=== PATIENT | male | born 1935 | race Caucasian/White ===

== ENCOUNTER 2018-03-21 14:23 | Emergency (ER) | payer MEDICARE, OTHER ==
[2018-03-21 17:07] VITALS: BP 178/91
--- NOTE | 2018-03-22 06:34 | EDM.PDOC ---
ED HPI GENERAL MEDICAL PROBLEM - General Chief Complaint: Upper Extremity Injury/Pain Stated Complaint: RIGHT ARM PAIN/WEAKNESS Time Seen by Provider: 03/21/18 14:30 Source of Information: Reports: Patient, Family History Limitations: Reports: No Limitations - History of Present Illness INITIAL COMMENTS - FREE TEXT/NARRATIVE: Complains of discomfort to the R anterior shoulder and bicep area. No paresthesia reported. States that he has been active and pulling weeds recently. Denies injury elsewhere. Denies any acute trauma to the area. Location: Reports: Upper Extremity, Right Treatments [employer]: Reports: Acetaminophen Right Upper Arm Pain Score (Numeric/FACES): 5 - Related Data Allergies Allergy/AdvReac Type Severity Reaction Status Date / Time terazosin HCl [From Hytrin] Allergy Cannot Verified 03/21/18 14:47 Remember captopril [From Capoten] AdvReac Cough Verified 03/21/18 14:47 Home Meds: Home Meds Aspirin 325 mg PO DAILY 05/31/13 [History] Betamethasone Dipropionate [Diprosone 0.05% Lotion] 0.5 percent TOP ASDIRECTED PRN 05/31/13 [History] Finasteride 5 mg PO DAILY 05/31/13 [History] Fish Oil/[place]-3 Fatty Acids [Fish Oil] 1 each PO DAILY 05/31/13 [History] Fluorometholone [Fluorometholone 0.1% Ophth Susp] 1 drop EYEBOTH DAILY 05/31/13 [History] Fluticasone/Salmeterol [Advair 250-50 Diskus] 1 puff INH BID 05/31/13 [History] Metoprolol Tartrate [Lopressor] 25 mg PO BID 05/31/13 [History] Multivitamin with Minerals [Multiple Vitamin] 1 tab PO DAILY 05/31/13 [History] Omeprazole 20 mg PO DAILY 05/31/13 [History] Pravastatin [Pravachol] 20 mg PO DAILY 05/31/13 [History] Tacrolimus [Protopic 0.1% Oint] 0.1 percent TOP BID PRN 05/31/13 [History] Tamsulosin HCl 0.4 mg PO DAILY 05/31/13 [History] Testosterone Cypionate [Depo-Testosterone] 200 mg IM ASDIRECTED 05/31/13 [ History] Valsartan [Diovan] 100 mg PO DAILY 05/31/13 [History] buPROPion [Wellbutrin XL] 450 mg PO DAILY 05/31/13 [History] traZODone 300 mg PO BEDTIME 05/31/13 [History] Acetaminophen 650 mg PO Q6HR PRN 08/27/16 [History] Nitroglycerin [Nitrostat] 0.4 mg SL ASDIRECTED PRN 08/27/16 [History] Venlafaxine HCl [Venlafaxine ER] 75 mg PO DAILY 08/27/16 [History] Furosemide [Lasix] 20 mg PO DAILY 08/06/17 [History] Albuterol [Ventolin HFA] 1 puff INH Q4H PRN 08/12/17 [History] Social & Family History - Tobacco Use Smoking Status *Q: Never Smoker - Recreational Drug Use Recreational Drug Use: No Review of Systems - Review of Systems Review Of Systems: See Below Constitutional: Reports: No Symptoms Musculoskeletal: Reports: Shoulder Pain, Arm Pain Neurological: Reports: No Symptoms ED EXAM, GENERAL - Physical Exam Exam: See Below Exam Limited By: No Limitations General Appearance: Alert, WD/WN, No Apparent Distress Extremities: Normal Capillary Refill, Arm Pain, Limited Range of Motion Course - Vital Signs Last Recorded V/S: Last Vital Signs Temp 36.6 C 03/21/18 14:25 Pulse 69 03/21/18 14:25 Resp 20 03/21/18 14:25 BP 178/91 H 03/21/18 14:25 Pulse Ox 97 03/21/18 14:25 Departure - Departure Time of Disposition: 15:02 Disposition: Home, Self-Care 01 Condition: Good Clinical Impression: Biceps tendinitis of right upper extremity - Discharge Information Instructions: RICE for Routine Care of Injuries, [id number], Biceps Tendon Tendinitis (Proximal) and Tenosynovitis Rehab-SportsMed Referrals: Camelia Lynch, [Primary Care Provider] - Forms: ED Department Discharge Additional Instructions: Do the exercises in the discharge paperwork. Tylenol #3 1 every 4-6 hours as needed for pain. I would try heat on the painful areas for discomfort. If you are still having discomfort in 5-7 days, follow-up in the clinic for MRI and further evaluation. - Assessment/Plan Plan: Do the exercises in the discharge paperwork. Tylenol #3 1 every 4-6 hours as needed for pain. I would try heat on the painful areas for discomfort. If you are still having discomfort in 5-7 days, follow-up in the clinic for MRI and further evaluation.
== END 2018-03-21 15:00 | disposition home or self-care (01) ==
LOC: VM.ED 14:23
DX: M75.21 Bicipital tendinitis, right shoulder (principal); Z79.82 Long term (current) use of aspirin; Z88.8 Allergy status to other drugs, medicaments and biological substances; Z79.899 Other long term (current) drug therapy
CPT/HCPCS: 99283

== ENCOUNTER 2019-11-01 20:50 | Inpatient (IN) | payer MEDICARE, OTHER ==
[~2019-11-01 20:50] MED LIST: Sodium Chloride 0.9% 1,000 ML IV ONE
[2019-11-01] MEDS ORDERED: Ondansetron 4 MG/2 ML SDV IV ONE (21:02)
--- NOTE | 2019-11-01 21:09 | EDM.PDOC ---
ED HPI GENERAL MEDICAL PROBLEM - General Stated Complaint: dizzy Time Seen by Provider: 11/01/19 20:55 Source of Information: Reports: Patient History Limitations: Reports: No Limitations - History of Present Illness INITIAL COMMENTS - FREE TEXT/NARRATIVE: Patient comes emergency department today by ambulance from home with complaints of dizziness. This patient has been working outside most of the day on a very hot tru day since about 3 PM. He does not drink much for water today and he is only eaten soda crackers today. Which is normal for him ports. Suddenly about 1730 the patient suddenly developed a rather abrupt onset of being unsteady and the room is spinning. Every time that he moves the room starts to spin and he is unable to stand up. He did not fall hit his head. He has no head neck or back pain. There was no loss of consciousness. He denies any diplopia. He denies any paresthesias of his upper or lower extremities or change in the functionality of his upper or lower extremities. He denies any chest pain shortness of breath or difficulty breathing. No palpitations. No fever no chills. No recent abdominal pain nausea vomiting or diarrhea. Every time that he starts to move he feels the spinning dizziness sensation. frontal headache Pain Score (Numeric/FACES): 8 - Related Data Allergies Allergy/AdvReac Type Severity Reaction Status Date / Time terazosin HCl [From Hytrin] Allergy Cannot Verified 11/01/19 21:18 Remember captopril [From Capoten] AdvReac Cough Verified 11/01/19 21:18 Home Meds: Home Meds Aspirin 325 mg PO DAILY 05/31/13 [History] Betamethasone Dipropionate [Diprosone 0.05% Lotion] 0.5 percent TOP ASDIRECTED PRN 05/31/13 [History] Finasteride 5 mg PO DAILY 05/31/13 [History] Fluorometholone [Fluorometholone 0.1% Ophth Susp] 1 drop EYEBOTH DAILY 05/31/13 [History] Fluticasone/Salmeterol [Advair 250-50 Diskus] 1 puff INH BID 05/31/13 [History] Metoprolol Tartrate [Lopressor] 25 mg PO BID 05/31/13 [History] Multivitamin with Minerals [Multiple Vitamin] 1 tab PO DAILY 05/31/13 [History] Omeprazole 20 mg PO DAILY 05/31/13 [History] Pravastatin [Pravachol] 20 mg PO DAILY 05/31/13 [History] Tacrolimus [Protopic 0.1% Oint] 0.1 percent TOP BID PRN 05/31/13 [History] Tamsulosin HCl 0.8 mg PO DAILY 05/31/13 [History] Testosterone Cypionate [Depo-Testosterone] 300 mg IM ASDIRECTED 05/31/13 [ History] buPROPion [Wellbutrin XL] 300 mg PO DAILY 05/31/13 [History] traZODone 300 mg PO BEDTIME 05/31/13 [History] Acetaminophen 650 mg PO Q6HR PRN 08/27/16 [History] Nitroglycerin [Nitrostat] 0.4 mg SL ASDIRECTED PRN 08/27/16 [History] Venlafaxine HCl [Venlafaxine ER] 150 mg PO DAILY 08/27/16 [History] Albuterol [Ventolin HFA] 1 puff INH Q4H PRN 08/12/17 [History] Calcium Carb, Citrate/Vit D3 [Calcium + D3 ER Tablet] 1 tab PO DAILY 11/01/19 [ History] Fluocinonide [Lidex 0.05% Top Soln] 1 applic TOP DAILY PRN 11/01/19 [History] Losartan [Cozaar] 100 mg PO BEDTIME 11/01/19 [History] ED ROS GENERAL - Review of Systems Review Of Systems: Comprehensive ROS is negative, except as noted in HPI. ED EXAM, DIZZINESS - Physical Exam Exam: See Below Text/Narrative:: eyes are closed and when sat up to listen to lung sounds he started to complain of worsening dizziness and started swaying on the cot and improved when he layed down and closed his eyes. Exam Limited By: No Limitations General Appearance: Alert, WD/WN, No Apparent Distress Eye Exam: Bilateral Eye: EOMI, PERRL Ears: Normal External Exam, Normal Canal (other than a small amount of thick dark cerumen. ), Normal TMs Nose: Normal Inspection, Normal Mucosa Throat/Mouth: Normal Inspection, Normal Lips, Normal Oropharynx Head Exam: Atraumatic, Normocephalic Vertigo: reproducible, short duration Neck: Normal Inspection, Supple Respiratory/Chest: No Respiratory Distress, Lungs Clear, No Accessory Muscle Use , Chest Non-Tender Cardiovascular: Normal Peripheral Pulses, Regular Rate, Rhythm, No Edema GI/Abdominal: Normal Bowel Sounds, Soft, Non-Tender (Male) Exam: Deferred Rectal (Males) Exam: Deferred Neurological: Alert, Normal Mood/Affect, CN II-XII Intact, Normal Reflexes, No Motor/Sensory Deficits, Oriented x 3 Back Exam: Normal Inspection, Full Range of Motion Extremities: Normal Inspection, Normal Range of Motion, No Pedal Edema, Normal Capillary Refill Psychiatric: Normal Affect, Normal Mood Skin Exam: Intact, No Rash, Cool, Diaphoretic, Pallor EKG INTERPRETATION EKG Date: 11/01/19 Time: 21:35 Rhythm: NSR Rate (Beats/Min): 59 [place]: Normal P-Wave: Present QRS: Normal ST-T: Normal QT: Prolonged Comparison: NA - No Prior EKG Course - Vital Signs Last Recorded V/S: Last Vital Signs Temp 36.0 C L 11/01/19 20:50 Pulse 65 11/01/19 20:50 Resp 16 11/01/19 21:40 BP 174/83 H 11/01/19 21:40 Pulse Ox 100 11/01/19 21:40 - Orders/Labs/Meds Orders: Active Orders 24 hr Category Date Time Status Admission Status [Patient Status] [ADT] Routine ADT 11/01/19 23:59 Active EKG Documentation Completion [RC] STAT Care 11/01/19 21:00 Active Ang Head [CT] Stat Exams 11/01/19 22:08 Taken CTA Neck W & W/O Contrast [Ang Neck] [CT] Stat Exams 11/01/19 22:08 Ordered Head wo Cont [CT] Stat Exams 11/01/19 21:00 Taken UA RFX NICOLE AND CULT IF INDIC [URIN] Stat Lab 11/01/19 21:00 Ordered Labs: Laboratory Tests 11/01/19 11/01/19 11/01/19 Range/Units 21:30 21:30 21:30 WBC 6.5 (4.0-10.0) x10^3/uL RBC 4.42 L (4.5-6.0) x10^6/uL Hgb 14.1 (14.0-18.0) g/dL Hct 42.0 (40.0-52.0) % MCV 95.0 H (78.0-93.0) fL MCH 31.9 (26.0-32.0) pg MCHC 33.6 (32.0-36.0) g/dL RDW Coeff of Alejandro 12.4 (10.0-15.0) % Plt Count 155 (130-400) x10^3/uL Neut % (Auto) 78.1 (50.0-80.0) % Lymph % (Auto) 12.6 L (25.0-50.0) % [place] % (Auto) 6.3 (2.0-11.0) % Eos % (Auto) 2.5 (0.0-4.0) % Baso % (Auto) 0.5 (0.2-1.2) % Sodium 144 (136-145) mmol/L Potassium 4.3 (3.5-5.1) mmol/L Chloride 107 (98-107) mmol/L Carbon Dioxide 25 (21-32) mmol/L Anion Gap 16.3 (10-20) mmol/L BUN 34 H (7-18) mg/dL Creatinine 1.6 H (0.70-1.30) mg/dL Est Cr Clr Drug Dosing 37.26 mL/min Estimated GFR (MDRD) 41 Glucose 124 H (74-106) mg/dL Lactic Acid 1.7 (0.4-2.0) mmol/L Calcium 8.7 (8.5-10.1) mg/dL Corrected Calcium 9.10 (8.5-10.1) mg/dL Total Bilirubin 0.4 (0.2-1.0) mg/dL AST 23 (15-37) U/L ALT 27 (16-63) U/L Alkaline Phosphatase 72 (46-116) U/L Troponin I < 0.017 (<=0.056) ng/mL Total Protein 6.6 (6.4-8.2) g/dL Albumin 3.5 (3.4-5.0) g/dL Globulin 3.1 Albumin/Globulin Ratio 1.13 Meds: Medications Discontinued Medications Generic Name Dose Route Start Last Admin Trade Name Freq PRN Reason Stop Dose Admin Diazepam 2.5 mg 11/01/19 21:02 11/01/19 21:10 Valium IVPUSH 11/01/19 21:03 2.5 mg STAT ONE Administration Sodium Chloride 1,000 mls @ 999 mls/hr 11/01/19 20:50 11/01/19 20:50 Normal Saline IV 11/01/19 21:50 999 mls/hr ONETIME ONE Administration Iopamidol 100 ml 11/01/19 22:27 11/01/19 23:09 Isovue-300 (61%) IVPUSH 11/01/19 22:28 100 ml ONETIME ONE Administration Meclizine HCl 25 mg 11/02/19 00:00 11/02/19 00:11 Antivert PO 11/02/19 00:01 25 mg ONETIME ONE Administration Ondansetron HCl 4 mg 11/01/19 21:02 11/01/19 21:08 Zofran IV 11/01/19 21:03 4 mg ONETIME ONE Administration - Radiology Interpretation Free Text/Narrative:: CT of the head per radiology no acute intracranial process. Nonspecific white matter changes sequelae of remote small vessel disease. He had neck no arterial occlusion or significant stenosis in the head and neck. Multifocal ectasia and/or fusiform dilation involving the carotid vertebral basilar and bilateral middle cerebral arteries. 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 11/02/19 00:16 He did feel quite a bit better after the valium although still unsteady on his feet. Repeat neuro exam is unchanged from previous. Per radiology CT head normal and CTA head with chronic changes. He is actually able to sit up and move his head without severe dizziness making him lay back down. With the unsteadiness on his feet and his continued symptoms we will admit observation for continued management and have PT see the patient and start him on antivert as well. HE is comfortable with this plan and his questions answered. Departure - Departure Time of Disposition: 00:05 Disposition: Admitted As Inpatient 67 Clinical Impression: Vertigo - Discharge Information Referrals: Camelia Lynch DO [Primary Care Provider] - Sepsis Event Note - Focused Exam Vital Signs: Vital Signs Temp Pulse Resp BP Pulse Ox 11/01/19 21:40 16 174/83 H 100 11/01/19 20:50 36.0 C L 65 12 162/86 H 97 Date Exam was Performed: 11/02/19 Time Exam was Performed: 00:12 - My Orders Last 24 Hours: My Active Orders 11/01/19 21:00 EKG Documentation Completion [RC] STAT Head wo Cont [CT] Stat UA RFX NICOLE AND CULT IF INDIC [URIN] Stat 11/01/19 22:08 Ang Head [CT] Stat CTA Neck W & W/O Contrast [Ang Neck] [CT] Stat 11/01/19 23:59 Admission Status [Patient Status] [ADT] Routine - Assessment/Plan Admission H&P: Please use this note as an admission H&P Last 24 Hours: My Active Orders 11/01/19 21:00 EKG Documentation Completion [RC] STAT Head wo Cont [CT] Stat UA RFX NICOLE AND CULT IF INDIC [URIN] Stat 11/01/19 22:08 Ang Head [CT] Stat CTA Neck W & W/O Contrast [Ang Neck] [CT] Stat 11/01/19 23:59 Admission Status [Patient Status] [ADT] Routine Assessment:: New onset of vertigo Hx of MCA aneurysm. Plan: A/P Vertigo-antivert 25mg q6hrs, LR at 50mls/hr, Zofran 4mg IVP prn nausea vomiting. PT eval for BPPV and home care. Continue with previous home meds. Cardiac monitoring, daily labs.
[2019-11-01 22:00] LABS: ANION GAP 16.3 mmol/L (10-20); CHLORIDE,CL 107 mmol/L (98-107); SODIUM,NA 144 mmol/L (136-145)
[2019-11-01] MEDS ORDERED: Iopamidol 612 MG/ML 100 ML Bottle IVPUSH ONE (22:27)
[2019-11-02] MEDS ORDERED: Meclizine 25 MG Tab PO ONE
[2019-11-02] MEDS ORDERED: Ondansetron 4 MG/2 ML SDV IVPUSH PRN (00:32)
[2019-11-02] MEDS ORDERED: BETAMETHASONE DIPROPIONATE TOP PRN (00:33)
[2019-11-02] MEDS ORDERED: Lactated Ringers 1,000 ML IV SCH (00:45)
[2019-11-02] MEDS: Meclizine 25 MG Tab PO SCH ×4 (05:26→23:47)
[2019-11-02 07:13] LABS: ANION GAP 14.4 mmol/L (10-20)
[2019-11-02] MEDS: Arformoterol 15 MCG/2 ML Neb Soln NEB SCH ×2 (07:15→19:48)
[2019-11-02] MEDS: Budesonide 0.5 MG/2 ML Neb Susp NEB SCH ×2 (07:15→19:48)
--- NOTE | 2019-11-02 08:48 | CT ---
[id number] CT/CT Head WO IV EXAM: CT Head WO IV CLINICAL DATA: VERTIGO COMPARISON STUDY: MR angiography from 2018. FINDINGS: No intracranial hemorrhage, extra-axial fluid collection, or acute ischemia. Mild/moderate parenchymal atrophy diffusely throughout both cerebral hemispheres. Scattered areas of hypodensity in the subcortical and periventricular white matter of the cerebral hemispheres as well. Findings are nonspecific but commonly seen as sequela of chronic small vessel disease. 11 x 7 x 7 mm mass projecting over the sylvian fissure on the left near the medial aspect of the temporal lobe (series 2 image 18 and series 4 image 25). This is partially and peripherally calcified, appearing contiguous with the middle cerebral artery and suspicious for aneurysm. No acute intracranial hemorrhage or extra-axial fluid collection. Mild paranasal sinus mucosal thickening. Mastoid air cells are clear. IMPRESSION: No acute intracranial findings. 11 x 7 x 7 mm partially peripherally calcified mass projecting over the sylvian fissure in the region of the medial left temporal lobe. This correlates with aneurysm seen on MR angiography from 2018. CT angiography of the brain is recommended. Mc Leavitt MD 11/02/19 0148 Thank you for allowing us to participate in the care of your patient.
--- NOTE | 2019-11-02 08:48 | CT ---
[id number] CT/CTA Head Neck EXAM: CT angiogram head and neck INDICATION: VERTIGO. COMPARISON: MR angiography from May 2018. DISCUSSION: Carotid and vertebrobasilar system: Overall, there is ectasia of the carotid and vertebrobasilar systems throughout their length, including origins at the aortic arch. No large vessel occlusion or dissection. [place]: 17 x 8 x 7 mm fusiform aneurysm of the left MCA M2 segment correlate with findings on noncontrast head CT. No change in size or appearance compared to MR from 2018. Dural sinuses, jugular veins and cerebral veins: Limited evaluation of the cerebral veins, dural sinuses and jugular veins is unremarkable. Brain parenchyma: Unremarkable. Neck soft tissues: Unremarkable. Osseous structures: Advanced cervical spondylosis with straightening of the normal cervical lordosis. No acute findings. IMPRESSION: Ectasia of the carotid and vertebrobasilar systems throughout their length, including origins at the aortic arch. 17 x 8 x 7 mm fusiform aneurysm of the left MCA. Mc Leavitt MD 11/02/19 0847 Thank you for allowing us to participate in the care of your patient.
[2019-11-02] MEDS: Acetaminophen 500 MG Tab PO SCH ×2 (09:59→19:47)
[2019-11-02] MEDS: Calcium Citrate/Vitamin D3 315 MG-250 Unit Tab PO SCH (10:00)
[2019-11-02] MEDS: buPROPion 150 MG Tab.ER PO SCH (10:00)
[2019-11-02] MEDS: Metoprolol Tartrate 25 MG Tab PO SCH ×2 (10:01→19:45)
[2019-11-02] MEDS: Multivitamins with Iron/Calcium/Folic Acid/Minerals Tab PO SCH (10:01)
[2019-11-02] MEDS: Tamsulosin 0.4 MG Cap.ER PO SCH (10:01)
[2019-11-02] MEDS: Venlafaxine 75 MG Cap.ER PO SCH (10:01)
[2019-11-02] MEDS: Omeprazole 20 MG Cap.CR PO SCH (10:02)
[2019-11-02] MEDS: Finasteride 5 MG Tab PO SCH (10:02)
[2019-11-02] MEDS: Aspirin 325 MG Tab.EC PO SCH (10:02)
[2019-11-02] MEDS ORDERED: Diazepam 2 MG Tab PO PRN (11:42)
[2019-11-02] MEDS: FLUOROMETHOLONE EYEBOTH SCH (12:29)
--- NOTE | 2019-11-02 19:34 | PCM.PN ---
- General Info Date of Service: 11/02/19 Admission Dx/Problem (Free Text): Vertigo Weakness Unsteady gate Subjective Update: Patient slept well during the night. He has not had any nausea or vomiting. He did have a headache this morning when he woke up which is typical for him he reports that he has had for the past 2 years. He did not relay this to me when I saw him in the emergency department but he has a headache on a daily basis for which he takes a gram of Tylenol in the morning and a gram of Tylenol at bedtime for. This is not the worst headache is ever had. No visual disturbances or paresthesias. He still complains of "dizziness" even when he is sitting and lying still but it is about 60 to 70% improved. He has had no syncope. He has had no chest pain palpitations shortness of breath or cough. Unable to eat this morning without nausea. He still is quite unsteady when he gets up. No abdominal pain. No bowel or bladder complaints. He does relate that it is rather difficult for him to walk with his chronic knee pain. Functional Status: Reports: Pain Controlled, Tolerating Diet - Review of Systems General: Reports: Weakness, Malaise, Appetite. Denies: Fever, Fatigue, Chills HEENT: Reports: Headaches (as stated above resolved after tylenol this am. ) Pulmonary: Reports: No Symptoms Cardiovascular: Reports: No Symptoms Gastrointestinal: Reports: No Symptoms Genitourinary: Reports: No Symptoms Musculoskeletal: Reports: Joint Pain (Chronic bilateral knee pain no worse than normal. ) Skin: Reports: No Symptoms Neurological: Reports: Dizziness, Headache, Difficulty Walking, Gait Disturbance (with his unsteadiness). Denies: Numbness, Paresthesia, Seizure, Syncope, Tingling, Trouble Speaking, Change in Speech Psychiatric: Reports: No Symptoms - Patient Data Vitals - Most Recent: Last Vital Signs Temp 37.2 C 11/02/19 18:00 Pulse 75 11/02/19 18:00 Resp 18 11/02/19 04:54 BP 139/85 11/02/19 18:00 Pulse Ox 94 L 11/02/19 18:00 Weight - Most Recent: 98.339 kg I&O - Last 24 Hours: Intake & Output 11/02/19 11/02/19 11/02/19 06:59 14:59 22:59 Intake Total 1200 660 963 Output Total 400 500 Balance 800 660 463 Lab Results Last 24 Hours: Laboratory Results - last 24 hr 11/01/19 11/01/19 11/01/19 Range/Units 21:30 21:30 21:30 WBC 6.5 (4.0-10.0) x10^3/uL RBC 4.42 L (4.5-6.0) x10^6/uL Hgb 14.1 (14.0-18.0) g/dL Hct 42.0 (40.0-52.0) % MCV 95.0 H (78.0-93.0) fL MCH 31.9 (26.0-32.0) pg MCHC 33.6 (32.0-36.0) g/dL RDW Coeff of Alejandro 12.4 (10.0-15.0) % Plt Count 155 (130-400) x10^3/uL Neut % (Auto) 78.1 (50.0-80.0) % Lymph % (Auto) 12.6 L (25.0-50.0) % [place] % (Auto) 6.3 (2.0-11.0) % Eos % (Auto) 2.5 (0.0-4.0) % Baso % (Auto) 0.5 (0.2-1.2) % Sodium 144 (136-145) mmol/L Potassium 4.3 (3.5-5.1) mmol/L Chloride 107 (98-107) mmol/L Carbon Dioxide 25 (21-32) mmol/L Anion Gap 16.3 (10-20) mmol/L BUN 34 H (7-18) mg/dL Creatinine 1.6 H (0.70-1.30) mg/dL Est Cr Clr Drug Dosing 37.26 mL/min Estimated GFR (MDRD) 41 Glucose 124 H (74-106) mg/dL Lactic Acid 1.7 (0.4-2.0) mmol/L Calcium 8.7 (8.5-10.1) mg/dL Corrected Calcium 9.10 (8.5-10.1) mg/dL Total Bilirubin 0.4 (0.2-1.0) mg/dL AST 23 (15-37) U/L ALT 27 (16-63) U/L Alkaline Phosphatase 72 (46-116) U/L Troponin I < 0.017 (<=0.056) ng/mL Total Protein 6.6 (6.4-8.2) g/dL Albumin 3.5 (3.4-5.0) g/dL Globulin 3.1 Albumin/Globulin Ratio 1.13 Urine Color (YELLOW) Urine Appearance (CLEAR) Urine pH (5.0-8.0) Ur Specific [place] Urine Protein (NEGATIVE) mg/dL Urine Glucose (UA) (NEGATIVE) mg/dL Urine Ketones (NEGATIVE) mg/dL Urine Occult Blood (NEGATIVE) Urine Nitrite (NEGATIVE) Urine Bilirubin (NEGATIVE) Urine Urobilinogen (0.2) EU/dL Ur Leukocyte Esterase (NEGATIVE) 11/02/19 11/02/19 11/02/19 Range/Units 03:00 06:49 06:49 WBC 7.1 (4.0-10.0) x10^3/uL RBC 4.38 L (4.5-6.0) x10^6/uL Hgb 14.0 (14.0-18.0) g/dL Hct 41.7 (40.0-52.0) % MCV 95.2 H (78.0-93.0) fL MCH 32.0 (26.0-32.0) pg MCHC 33.6 (32.0-36.0) g/dL RDW Coeff of Alejandro 12.4 (10.0-15.0) % Plt Count 194 (130-400) x10^3/uL Neut % (Auto) 81.3 H (50.0-80.0) % Lymph % (Auto) 12.9 L (25.0-50.0) % [place] % (Auto) 5.4 (2.0-11.0) % Eos % (Auto) 0.1 (0.0-4.0) % Baso % (Auto) 0.3 (0.2-1.2) % Sodium 143 (136-145) mmol/L Potassium 4.4 (3.5-5.1) mmol/L Chloride 107 (98-107) mmol/L Carbon Dioxide 26 (21-32) mmol/L Anion Gap 14.4 (10-20) mmol/L BUN 28 H (7-18) mg/dL Creatinine 1.4 H (0.70-1.30) mg/dL Est Cr Clr Drug Dosing 42.58 mL/min Estimated GFR (MDRD) 48 Glucose 116 H (74-106) mg/dL Lactic Acid (0.4-2.0) mmol/L Calcium 8.4 L (8.5-10.1) mg/dL Corrected Calcium (8.5-10.1) mg/dL Total Bilirubin (0.2-1.0) mg/dL AST (15-37) U/L ALT (16-63) U/L Alkaline Phosphatase (46-116) U/L Troponin I (<=0.056) ng/mL Total Protein (6.4-8.2) g/dL Albumin (3.4-5.0) g/dL Globulin Albumin/Globulin Ratio Urine Color Yellow (YELLOW) Urine Appearance Clear (CLEAR) Urine pH 7.5 (5.0-8.0) Ur Specific [place] 1.015 Urine Protein Negative (NEGATIVE) mg/dL Urine Glucose (UA) Negative (NEGATIVE) mg/dL Urine Ketones Negative (NEGATIVE) mg/dL Urine Occult Blood Negative (NEGATIVE) Urine Nitrite Negative (NEGATIVE) Urine Bilirubin Negative (NEGATIVE) Urine Urobilinogen 0.2 (0.2) EU/dL Ur Leukocyte Esterase Negative (NEGATIVE) Med Orders - Current: Current Medications Acetaminophen (Tylenol Extra Strength) 1,000 mg PO BID [facility] Last Admin: 11/02/19 09:59 Dose: 1,000 mg Arformoterol Tartrate (Brovana) 15 mcg NEB BIDRT [facility] Last Admin: 11/02/19 07:15 Dose: 15 mcg Aspirin (Ecotrin) 325 mg PO DAILY [facility] Last Admin: 11/02/19 10:02 Dose: 325 mg Budesonide (Pulmicort) 0.5 mg NEB BIDRT [facility] Last Admin: 11/02/19 07:15 Dose: 0.5 mg Bupropion HCl (Wellbutrin Xl) 300 mg PO DAILY [facility] Last Admin: 11/02/19 10:00 Dose: 300 mg Calcium Citrate (Calcium Citrate + D) 1 tab PO DAILY [facility] Last Admin: 11/02/19 10:00 Dose: 1 tab Diazepam (Valium) 2 mg PO TID PRN PRN Reason: Dizziness Last Admin: 11/02/19 12:40 Dose: 2 mg Finasteride (Proscar) 5 mg PO DAILY [facility] Last Admin: 11/02/19 10:02 Dose: 5 mg Losartan Potassium (Cozaar) 100 mg PO BEDTIME [facility] Meclizine HCl (Antivert) 25 mg PO Q6HR [facility] Last Admin: 11/02/19 18:13 Dose: 25 mg Metoprolol Tartrate (Lopressor) 25 mg PO BID [facility] Last Admin: 11/02/19 10:01 Dose: 25 mg Multivitamins/Minerals (Thera M Plus) 1 tab PO DAILY [facility] Last Admin: 11/02/19 10:01 Dose: 1 tab Betamethasone Dipropionate [ Diprosone 0.05% Lotion] 0.5% 0 percent TOP ASDIRECTED PRN PRN Reason: Inflammation Fluorometholone (Own (Supply)) 1 drop EYEBOTH DAILY [facility] Last Admin: 11/02/19 12:29 Dose: Not Given Omeprazole (Omeprazole) 20 mg PO DAILY [facility] Last Admin: 11/02/19 10:02 Dose: 20 mg Ondansetron HCl (Zofran) 4 mg IVPUSH Q8H PRN PRN Reason: Nausea Last Admin: 11/02/19 09:57 Dose: 4 mg Simvastatin (Zocor) 10 mg PO BEDTIME [facility] Tamsulosin HCl (Flomax) 0.8 mg PO DAILY [facility] Last Admin: 11/02/19 10:01 Dose: 0.8 mg Trazodone HCl (Trazodone) 300 mg PO BEDTIME [facility] Venlafaxine HCl (Effexor Xr) 150 mg PO DAILY [facility] Last Admin: 11/02/19 10:01 Dose: 150 mg Discontinued Medications Diazepam (Valium) 2.5 mg IVPUSH STAT ONE Stop: 11/01/19 21:03 Last Admin: 11/01/19 21:10 Dose: 2.5 mg Sodium Chloride (Normal Saline) 1,000 mls @ 999 mls/hr IV ONETIME ONE Stop: 11/01/19 21:50 Last Admin: 11/01/19 20:50 Dose: 999 mls/hr Lactated Ringer's (Ringers, Lactated) 1,000 mls @ 50 mls/hr IV ASDIRECTED [facility] Last Admin: 11/02/19 02:56 Dose: 50 mls/hr Iopamidol (Isovue-300 (61%)) 100 ml IVPUSH ONETIME ONE Stop: 11/01/19 22:28 Last Admin: 11/01/19 23:09 Dose: 100 ml Meclizine HCl (Antivert) 25 mg PO ONETIME ONE Stop: 11/02/19 00:01 Last Admin: 11/02/19 00:11 Dose: 25 mg Ondansetron HCl (Zofran) 4 mg IV ONETIME ONE Stop: 11/01/19 21:03 Last Admin: 11/01/19 21:08 Dose: 4 mg - Exam General: Alert, Oriented, No Acute Distress HEENT: Pupils Equal, Pupils Reactive, EOMI, Mucous Membr. Moist/[place], Other ( Bilateral at rest horizontal nystagmus unable to fatigue out. ) Neck: Supple Lungs: Clear to Auscultation, Normal Respiratory Effort Cardiovascular: Regular Rate, Regular Rhythm, Other (NSR no irregularity per nursing report. ) GI/Abdominal Exam: Normal Bowel Sounds, Soft, Non-Tender, No Distention (Male) Exam: Deferred Back Exam: Normal Inspection Extremities: Normal Inspection, Pedal Edema (scant bilateral edema equal bilaterally. ) Peripheral Pulses: 2+: Radial (L), Radial (R), Posterior Tibial (L), Posterior Tibial (R), Dorsalis Pedis (L), Dorsalis Pedis (R) Skin: Warm, Dry, Intact Neurological: Normal Speech, Normal Tone, Strength Equal Bilateral, Reflexes Equal Bilateral, Sensation Intact, Cranial Nerves Intact (except for the nystagmus), Other (Positive rhomburg as well. ) Psy/Mental Status: Alert Sepsis Event Note - Evaluation Sepsis Screening Result: No Definite Risk - Focused Exam Vital Signs: Vital Signs Temp Pulse Pulse BP BP Pulse Ox 11/02/19 18:00 37.2 C 75 139/85 94 L 11/02/19 10:01 83 170/96 H 11/02/19 10:00 37.3 C 73 156/83 H 95 Date Exam was Performed: 11/02/19 Time Exam was Performed: 19:28 - Problem List & Annotations (1) Vertigo SNOMED Code(s): 487801250 Code(s): R42 - DIZZINESS AND GIDDINESS Status: Acute Current Visit: Yes (2) Generalized weakness SNOMED Code(s): 25372120 Code(s): R53.1 - WEAKNESS Status: Acute Current Visit: Yes (3) Unsteady gait SNOMED Code(s): 48494593 Code(s): R26.81 - UNSTEADINESS ON FEET Status: Acute Current Visit: Yes - Problem List Review Problem List Initiated/Reviewed/Updated: Yes - My Orders Last 24 Hours: My Active Orders 11/01/19 23:59 Admission Status [Patient Status] [ADT] Routine 11/02/19 00:27 Height and Weight [RC] DAILY Intake and Output [RC] Oxygen Therapy [RC] .PRN Up With Assistance [RC] VTE/DVT Education [RC] .PRN Vital Signs [RC] 02,,,,, Resuscitation Status Routine 11/02/19 00:28 Cardiac Monitoring [RC] 02,,,,, Antiembolic Hose [OM.PC] Per Unit Routine 11/02/19 00:31 Antiembolic Devices [RC] 11/02/19 00:32 Ondansetron [Zofran] 4 mg IVPUSH Q8H PRN 11/02/19 00:33 Betamethasone Dipropionate [Diprosone 0.05% Lotion] 0 percent TOP ASDIRECTED PRN 11/02/19 00:45 RT Aerosol Therapy [RC] 11/02/19 00:46 PT Evaluation and Treatment [CONS] Routine 11/02/19 06:00 Meclizine [Antivert] 25 mg PO Q6HR 11/02/19 07:00 Arformoterol [Brovana] 15 mcg NEB BIDRT Budesonide [Pulmicort] 0.5 mg NEB BIDRT 11/02/19 08:00 Aspirin [Ecotrin] 325 mg PO DAILY Calcium Citrate/Vitamin D3 [Calcium Citrate + D] 1 tab PO DAILY Finasteride [Proscar] 5 mg PO DAILY Fluorometholone 1 drop EYEBOTH DAILY Metoprolol Tartrate [Lopressor] 25 mg PO BID Multivitamins w-Iron/Ca/FA/Min [Thera M Plus] 1 tab PO DAILY Omeprazole 20 mg PO DAILY Tamsulosin [Flomax] 0.8 mg PO DAILY Venlafaxine [Effexor XR] 150 mg PO DAILY buPROPion [Wellbutrin XL] 300 mg PO DAILY 11/02/19 08:30 Acetaminophen [Tylenol Extra Strength] 1,000 mg PO BID 11/02/19 11:42 diazePAM [Valium] 2 mg PO TID PRN 11/02/19 20:00 Losartan [Cozaar] 100 mg PO BEDTIME Simvastatin [Zocor] 10 mg PO BEDTIME traZODone 300 mg PO BEDTIME 11/02/19 Breakfast Regular Diet [DIET] - Assessment Assessment:: Vertigo: His symptoms have improved he reports quite a bit with the meclizine. It is scheduled 25 mg every 6 hours. I will add some diazepam as well for as needed 2 mg 3 times daily. Patient was seen by physical therapy today and really have more concern for this being a central vertigo versus a BPPV. This finding and concerning the continued nystagmus I wonder if he does not have a small posterior circulation infarct. Or if it was worsening symptoms from his aneurysm. I spoke with Dr. 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 He had the films to review as well in front of him he feels that the aneurysm has not changed since the MRI of 2018. Unlikely for the location of the aneurysm to cause his vertigo type symptoms. Suggest a nonemergent MRI. If the MRI is positive transthoracic echocardiogram. CHRISTAL in the presence of CKD- Creat improving. Will stop the fluid at this time. Continue daily labs. Generalized weakness: Patient does relate that he is getting a little bit stronger but he did have a fall while he was in the hospital today no injuries or complaints after the fall. Even walking with the walker he fell today. Continue with physical therapy and strengthening I have concerns for him being able to get home tomorrow following his 48 hours of observation. I will have social work/case management see the patient as well for discharge planning due to his kind of chronic unsteadiness prior to the new onset of the vertigo. Unsteady gate. 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 Up with assist of 2. Physical therapy continue working with strengthening and coordination. HX known MCA fusiform aneurysm. Stable per CTA and neurologist [facility] today. HX CAD start aspirin. Discussed the patient's case with his primary care provider Dr. Elisabet Lynch. She will see the patient in the morning and assume care of the patient with the new findings and concerns for a possible posterior circulation CVA causing his vertigo. - Plan Plan:: See assessment
[2019-11-02] MEDS: Simvastatin 10 MG Tab PO SCH (19:45)
[2019-11-02] MEDS: traZODone 50 MG Tab PO SCH (19:46)
[2019-11-02] MEDS ORDERED: Losartan 50 MG Tab PO SCH (20:00)
[2019-11-02] MEDS: Aspirin 81 MG Tab.Chew PO SCH (21:16)
[2019-11-03] MEDS: Budesonide 0.5 MG/2 ML Neb Susp NEB SCH ×2 (06:12→21:04)
[2019-11-03] MEDS: Meclizine 25 MG Tab PO SCH (06:12)
[2019-11-03] MEDS: Arformoterol 15 MCG/2 ML Neb Soln NEB SCH ×2 (06:12→21:04)
[2019-11-03 07:20] LABS: ANION GAP 14.1 mmol/L (10-20)
[2019-11-03] MEDS: Venlafaxine 75 MG Cap.ER PO SCH (10:22)
[2019-11-03] MEDS: Acetaminophen 500 MG Tab PO SCH ×2 (10:22→21:04)
[2019-11-03] MEDS: buPROPion 150 MG Tab.ER PO SCH (10:22)
[2019-11-03] MEDS: Calcium Citrate/Vitamin D3 315 MG-250 Unit Tab PO SCH (10:24)
[2019-11-03] MEDS: Multivitamins with Iron/Calcium/Folic Acid/Minerals Tab PO SCH (10:24)
[2019-11-03] MEDS: Omeprazole 20 MG Cap.CR PO SCH (10:24)
[2019-11-03] MEDS: Tamsulosin 0.4 MG Cap.ER PO SCH (10:25)
[2019-11-03] MEDS: Finasteride 5 MG Tab PO SCH (10:25)
[2019-11-03] MEDS: Aspirin 325 MG Tab.EC PO SCH (10:25)
[2019-11-03] MEDS: FLUOROMETHOLONE EYEBOTH SCH (10:27)
[2019-11-03] MEDS: Metoprolol Tartrate 25 MG Tab PO SCH ×2 (10:29→21:06)
[2019-11-03] MEDS: Aspirin 81 MG Tab.Chew PO SCH (10:29)
[2019-11-03] MEDS: Clopidogrel 75 MG Tab PO SCH (10:31)
[2019-11-03] MEDS: Meclizine 25 MG Tab PO PRN (10:32)
--- NOTE | 2019-11-03 16:21 | PN ---
Progress Note for JERMAINE VIGIL Date: 11/03/2019 Room #: VM.215 SUBJECTIVE: This is hospital observation day #3 on an 84-year-old admitted on the evening of 10/31 with acute onset of dizziness. He was out working in his yard and then he just was too weak to even get up. He laid down on the sidewalk, maybe an hour. His called the ambulance. He does not state that it came on just quickly, but it did sort of come on gradually that he was just feeling more weak, but no double vision. All extremities were weak. It was in just 1 arm or 1 leg, and he had no new headaches, no vision changes, but did have the dizzy sensation, which he has not had any vertigo before. He does have a known history of an MCA aneurysm back in 2016, which has not required any intervention, but he is sort of been lost to follow up with Neurosurgery since it was stable in 2018. Yesterday, the patient even needed the standing lift. He actually had a fall in his room. Physical Therapy evaluated him and thought it was more of a central cause. Neurology had recommended an MRI, which is not available till Wednesday. He has been on cardiac monitoring, which has not showed any AFib. He has no history of it, but does have a history of coronary artery disease. He has been getting scheduled Antivert and has had 1 dose of p.r.n. diazepam at about noon yesterday. He was reported to have some horizontal nystagmus and ataxia with movements. Today, the patient per ER provider is about maybe 60%, 70% better. He can now get up with staff, not the standing lift. He actually would like to go home, but knows he would need a wheelchair to get home. Blood pressure was quite high when he came in 160s, 170s, now his blood pressure is under much better control. He would like to use his CPAP which he uses at home. OBJECTIVE: Vital Signs: This morning, his weight was 105 kg, temperature 98.7, pulse 69, blood pressure 139/72, respiratory rate 17, and O2 96 on room air. He normally is not on oxygen. Does use inhalers intermittently at home like Advair. Lungs: His lung sounds were clear to auscultation bilaterally. Heart: Irregular rate and rhythm without murmur. Abdomen: Nondistended. Extremities: Warm and dry. No edema. He has no focal weakness. Finger-nose- finger testing shows no ataxia today. He has no decrease in sensation. It should be noted too the patient was recently in the clinic and his Flomax was increased to 0.8 mg to take at bedtime. He feels like he has to void frequently and then he does not go much. Postvoid residual in the clinic was 41. LABORATORY DATA: Lab Work did show his white count 6.8, hemoglobin 12.8, platelets 181. Sodium 143, potassium 4.1, chloride 106, bicarb 27, BUN 22, creatinine 1.5, calcium 8.4. UA was completely negative. ASSESSMENT AND PLAN: 1. Acute onset dizziness, possibly due to a posterior circulation stroke. His symptoms are improving. We will plan for an MRI on Wednesday. We will continue to monitor with telemetry. He will continue to work with therapies. He is on aspirin full dose now since this occurred, 325 daily. We are going to move that back to [address] him on Plavix 75 mg daily for 25 days. CTA was done of the neck, did not show any severe vertebral or carotid stenosis. We will likely get an echo as an outpatient. Less than 1 year ago his EF was 65% and he does have an ascending aortic aneurysm 40.8 mm. 2. 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 This is known at least back in 2016. At this point, no further intervention is needed. He will need further monitoring and followup as an outpatient. 3. Benign prostatic hyperplasia. He has not had any urinary retention. He was recently increased on Flomax. We will continue to follow that with some bladder scans here. 4. Essential hypertension. Blood pressure is now dropping lower. I am going to go ahead and stop his losartan to allow for some permissive hypertension given our concerns for stroke. 5. Chronic kidney disease stage 3. His creatinine at baseline is around 1.5. He was given some IV fluids here and he is at 1.5 at his baseline. 6. History of coronary artery disease. He has not had any angina. 7. Hypogonadism. He previously was on testosterone, but has not received any for several months. 8. History of major depression. 9. Reactive airway disease. His Advair has been switched over to nebulizers. 10.Obstructive sleep apnea. I placed an order for him to use his CPAP. PLAN: At this point, the patient has been moved from observation to acute cares. We will continue working with therapies. We will get the MRI of the brain on Wednesday. I anticipate he will be able to be discharged home with his , maybe with home health when he is in a stable condition. MKA: 11/03/2019 15:36:31 MODL: 11/03/2019 16:02:21 /[id number]
[2019-11-03] MEDS: traZODone 50 MG Tab PO SCH (21:04)
[2019-11-03] MEDS: Simvastatin 10 MG Tab PO SCH (21:07)
[2019-11-04] MEDS: Arformoterol 15 MCG/2 ML Neb Soln NEB SCH ×2 (08:01→20:25)
[2019-11-04] MEDS: Budesonide 0.5 MG/2 ML Neb Susp NEB SCH ×2 (08:01→20:25)
[2019-11-04] MEDS: Calcium Citrate/Vitamin D3 315 MG-250 Unit Tab PO SCH (08:03)
[2019-11-04] MEDS: buPROPion 150 MG Tab.ER PO SCH (08:03)
[2019-11-04] MEDS: Clopidogrel 75 MG Tab PO SCH (08:03)
[2019-11-04] MEDS: Aspirin 81 MG Tab.Chew PO SCH (08:03)
[2019-11-04] MEDS: Tamsulosin 0.4 MG Cap.ER PO SCH (08:04)
[2019-11-04] MEDS: Acetaminophen 500 MG Tab PO SCH ×2 (08:04→20:26)
[2019-11-04] MEDS: Finasteride 5 MG Tab PO SCH (08:04)
[2019-11-04] MEDS: Metoprolol Tartrate 25 MG Tab PO SCH ×2 (08:05→20:27)
[2019-11-04] MEDS: Meclizine 25 MG Tab PO PRN (08:05)
[2019-11-04] MEDS: Multivitamins with Iron/Calcium/Folic Acid/Minerals Tab PO SCH (08:05)
[2019-11-04] MEDS: Omeprazole 20 MG Cap.CR PO SCH (08:05)
[2019-11-04] MEDS: Venlafaxine 75 MG Cap.ER PO SCH (08:05)
[2019-11-04] MEDS: FLUOROMETHOLONE EYEBOTH SCH (08:57)
--- NOTE | 2019-11-04 17:01 | PN ---
Progress Note for JERMAINE VIGIL Date: 11/04/2019 Room #: VM.215 CHIEF COMPLAINT: Dizziness. SUBJECTIVE: This is hospitalization day #2 for an 84-year-old male patient who was admitted to observation for dizziness. The patient did have initial CT scans which did not show any acute etiology for the patient's symptoms. The patient continues to have generalized weakness in all 4 extremities. The patient offers no specific complaints today. He states that he feels his dizziness is better. He is working with physical therapy. He states that he feels very weak and needs to use a wheelchair during therapy. The patient currently does not feel any focal neurological deficits. The patient does not have any chest pain or palpitations. The patient states that he does feel short of breath, however, he does use a CPAP which helps. No cough. The patient denies any abdominal pain. He is tolerating his diet okay. The patient has not complained of any urination or bowel movement problems. OBJECTIVE: Vital Signs: Blood pressure 125/69, pulse of 57, temp is 98.9, respirations are 18, oxygen saturation 93% on room air. Height is 5 feet 11-1/2 inches, weight is 222 pounds. Respiratory: Lungs are clear to auscultation bilaterally. Cardiovascular: No murmur. The patient does have an irregular rate and rhythm. Abdomen: Nondistended. Nontender. Bowel sounds are active x4. Extremities: No edema. No focal weakness on exam today. Constitutional: The patient is alert. The patient is cooperative. The patient does not appear to be in any acute distress. LABORATORY STUDIES: None. ASSESSMENT: 1. Acute-onset dizziness, possibly due to a posterior circulation stroke. The patient's symptoms seem to be improving. We will continue to plan for an MRI on Wednesday with contrast. Continue with cardiac monitoring. The patient will continue with physical and occupational therapies. Continue with antiplatelet therapy. 2. 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 This is known at least back to 2014. No further intervention is needed. 3. Benign prostatic hyperplasia. Continue with Flomax. The patient has not had any urinary retention. We will continue to follow with bladder scans. 4. Essential hypertension. Blood pressure is adequately controlled. We will continue to hold the losartan. 5. Chronic kidney disease, stage 3. Creatinine is at baseline. Continue to monitor. 6. History of coronary artery disease. Has not had any chest pain. 7. Hypogonadism. The patient was previously on testosterone therapy, however, this was stopped several months ago. 8. History of major depression. 9. Reactive airway disease. The patient is currently on nebulizer therapy. 10.Obstructive sleep apnea. Continue to use CPAP as directed. PLAN: Continue with acute cares for now. The patient will continue working with therapies. We will plan to get an MRI on Wednesday of the brain with contrast. Continue with cardiac monitoring. TB: 11/04/2019 11:08:46 MODL: 11/04/2019 11:24:32 /[id number]
[2019-11-04] MEDS: traZODone 50 MG Tab PO SCH (20:25)
[2019-11-04] MEDS: Simvastatin 10 MG Tab PO SCH (20:27)
[2019-11-04] MEDS ORDERED: Sodium Chloride 0.9% 10 ML Syringe IV PRN (21:07)
[2019-11-05] MEDS: Budesonide 0.5 MG/2 ML Neb Susp NEB SCH ×2 (06:01→19:33)
[2019-11-05] MEDS: Arformoterol 15 MCG/2 ML Neb Soln NEB SCH ×2 (06:01→19:33)
[2019-11-05] MEDS: buPROPion 150 MG Tab.ER PO SCH (08:44)
[2019-11-05] MEDS: Calcium Citrate/Vitamin D3 315 MG-250 Unit Tab PO SCH (08:44)
[2019-11-05] MEDS: Aspirin 81 MG Tab.Chew PO SCH (08:45)
[2019-11-05] MEDS: Omeprazole 20 MG Cap.CR PO SCH (08:45)
[2019-11-05] MEDS: Clopidogrel 75 MG Tab PO SCH (08:45)
[2019-11-05] MEDS: Tamsulosin 0.4 MG Cap.ER PO SCH (08:45)
[2019-11-05] MEDS: Finasteride 5 MG Tab PO SCH (08:46)
[2019-11-05] MEDS: Multivitamins with Iron/Calcium/Folic Acid/Minerals Tab PO SCH (08:46)
[2019-11-05] MEDS: Venlafaxine 75 MG Cap.ER PO SCH (08:46)
[2019-11-05] MEDS: Metoprolol Tartrate 25 MG Tab PO SCH ×2 (08:46→19:35)
[2019-11-05] MEDS: Acetaminophen 500 MG Tab PO SCH ×2 (08:47→19:34)
[2019-11-05] MEDS: FLUOROMETHOLONE EYEBOTH SCH (08:48)
--- NOTE | 2019-11-05 11:38 | PN ---
Progress Note for JERMAINE VIGIL Date: 11/05/2019 Room #: VM.215 CHIEF COMPLAINT: Dizziness. SUBJECTIVE: This is hospitalization day #3 for an 84-year-old male patient who was admitted to observation for dizziness. The patient did have an initial CT scan which did not show any acute etiology for patient's symptoms. The patient continued to also have generalized weakness in all 4 extremities. The patient does not offer any specific complaints today. He states that he feels his weakness is getting better. The patient states that he does have some blurriness of the left eye. The patient does not feel that this is a new finding. The patient does not have any headaches. The patient states no chest pain or palpitations. The patient is not having any shortness of breath or cough. The patient denies any lightheadedness. The patient denies any abdominal pain. No nausea or vomiting. The patient has not had any complaints of urination or bowel movement problems. OBJECTIVE: Vital Signs: Blood pressure 143/84, temperature is 98, pulse is 66, respirations 19, oxygen saturation 96% on room air. Respiratory: Lungs are clear to auscultation bilaterally. No adventitious breath sounds. Cardiovascular: No murmur. Irregular rate and rhythm. Abdomen: Nondistended, nontender. Bowel sounds are active x4. Extremities: No edema. No focal weakness on exam. Constitutional: The patient is alert. The patient is cooperative. The patient does not appear to be in any acute distress. LABORATORY STUDIES: None. ASSESSMENT: 1. Acute-onset dizziness, possibly due to posterior circulation stroke. The patient is scheduled for an MRI tomorrow. The patient's symptoms do seem to be improving. We will continue with cardiac monitoring. The patient will continue with Physical and Occupational Therapy. 2. 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 This is known at least back in 2014. No further evaluation needed. 3. Benign prostatic hyperplasia. Continue with Flomax. The patient has not had any urinary problems since admission. 4. Essential hypertension. The patient's blood pressure is adequately controlled. We will continue to hold losartan. 5. Chronic kidney disease, stage 3. Creatinine is at baseline. We will recheck the blood levels tomorrow. 6. History of coronary artery disease. The patient has not had any chest pain. 7. Hypogonadism. The patient has been off testosterone therapy for quite some time. 8. History of major depression. 9. Reactive airway disease. The patient is currently on nebulizer therapy while in the hospital. 10.Obstructive sleep apnea. Continue to use home CPAP as directed. PLAN: We will continue acute cares for now. Encourage the patient to get up and walk to increase his strength. Continue with MRI tomorrow. We will also continue with cardiac monitoring. Dr. Camelia Lynch will assume care of this patient tomorrow morning. TB: 11/05/2019 09:52:18 MODL: 11/05/2019 11:09:05 /[id number] MTDD
[2019-11-05] MEDS: traZODone 50 MG Tab PO SCH (19:33)
[2019-11-05] MEDS: Simvastatin 10 MG Tab PO SCH (19:35)
[2019-11-06] MEDS: Arformoterol 15 MCG/2 ML Neb Soln NEB SCH (06:19)
[2019-11-06] MEDS: Budesonide 0.5 MG/2 ML Neb Susp NEB SCH (06:20)
[2019-11-06] MEDS: Multivitamins with Iron/Calcium/Folic Acid/Minerals Tab PO SCH (07:35)
[2019-11-06] MEDS: Metoprolol Tartrate 25 MG Tab PO SCH (07:35)
[2019-11-06] MEDS: Calcium Citrate/Vitamin D3 315 MG-250 Unit Tab PO SCH (07:35)
[2019-11-06] MEDS: Omeprazole 20 MG Cap.CR PO SCH (07:35)
[2019-11-06] MEDS: Aspirin 81 MG Tab.Chew PO SCH (07:36)
[2019-11-06] MEDS: Venlafaxine 75 MG Cap.ER PO SCH (07:36)
[2019-11-06] MEDS: FLUOROMETHOLONE EYEBOTH SCH (07:36)
[2019-11-06] MEDS: Tamsulosin 0.4 MG Cap.ER PO SCH (07:36)
[2019-11-06] MEDS: Clopidogrel 75 MG Tab PO SCH (07:36)
[2019-11-06] MEDS: Finasteride 5 MG Tab PO SCH (07:36)
[2019-11-06] MEDS: Acetaminophen 500 MG Tab PO SCH (07:36)
[2019-11-06] MEDS: buPROPion 150 MG Tab.ER PO SCH (07:36)
[2019-11-06 07:38] LABS: ANION GAP 13.7 mmol/L (10-20)
[2019-11-06] MEDS ORDERED: Losartan 25 MG Tab PO SCH (08:00)
[2019-11-06 09:46] VITALS: BP 144/81; PULSE 69
[2019-11-06] MEDS ORDERED: Gadoteridol 279.3 MG/ML 20 ML SDV ONE (15:00)
--- NOTE | 2019-11-06 16:47 | MR ---
[id number] MR/MRI Brain and Stem WWO IV EXAM: BRAIN MRI WITH AND WITHOUT CONTRAST INDICATION: STROKE. COMPARISON: Head CT November 01, 2019. 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 Mild to moderate generalized atrophy. Mild multifocal T2 hyperintensities are nonspecific, but generally ascribed to chronic small vessel ischemia. No mass effect, midline shift or cerebellar tonsillar ectopia. No restricted diffusion. Small bilateral maxillary sinus mucosal retention cysts. Mild scattered paranasal sinus mucosal thickening. IMPRESSION: 1. Mild to moderate generalized atrophy. 2. Mild chronic small vessel ischemic changes. 3. 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 4. Negative for acute ischemia. Ned Landry MD 11/06/19 2039 Thank you for allowing us to participate in the care of your patient.
--- NOTE | 2019-11-06 19:46 | DISCH ---
DATE OF OBSERVATION ADMISSION: 11/01/2019. PRIMARY DISCHARGE DIAGNOSES: 1. Vertigo, double vision with improving dizziness, but continued unsteadiness. MRI was negative for posterior circulation stroke, which was our working diagnosis because this was felt to be a central vertigo. Symptoms are improving. The patient is felt to be too unsafe to return home currently. 2. Known history of corneal transplants. The patient's has not brought in his eye drops. They have been ordered for him. We are encouraging her to do that. 3. Obstructive sleep apnea. He is on CPAP. 4. History of coronary artery disease. He has not had any angina. 5. Reactive airway disease, not asthma. He is chronically short of breath. He has had no changes. 6. Osteoarthritis in his knees and back affecting his mobility. 7. 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 8. Benign prostatic hyperplasia, recently increased on his Flomax. He is voiding okay. Postvoid residuals were 100 or less. 9. Essential hypertension. Losartan held to allow hypertension in case of stroke. It has been restarted, but at a lower dose. We will continue to monitor closely. 10.Chronic kidney disease. Creatinine stable around 1.5. 11.Hypogonadism. Remotely on testosterone injections, none for several months. 12.History of major depression. REASON FOR ADMISSION: On the date of admission, this 84-year-old male was outside his home working. He had not really eaten during the day. He became so lightheaded that he laid down on the sidewalk and he was found like an hour later. He was initially admitted for observation. He had a head CT and a neck CTA, which did not show any stroke. Unfortunately, his symptoms did not improve rapidly, although they did improve slowly. Neurology was contacted. They recommended an MRI. Decision was made to switch him over to acute care. He had already been placed on a full-dose aspirin, was switched back to his baby aspirin and Plavix, and adjustments were made in his blood pressure pills. The patient continued to work with Therapy and had an uneventful hospital course. He had no evidence of any infections and lab work was monitored with his hemoglobin stable at 14.0 on discharge. He was using his home CPAP machine during his stay. Decision was made to discharge the patient over to swing bed for several more days of therapy at the recommendations of the therapist. He did complete an MRI this afternoon, which came back negative for any stroke, so the cause of his vertigo and vertical double vision is unknown. He did have mild chronic small-vessel changes noted, but no acute ischemia. DISCHARGE PLANS AND INSTRUCTIONS: He is going over to swing bed for further therapies. PHYSICAL EXAMINATION: Discharging Vitals: Include a temperature 98.7, pulse 69, blood pressure 144/81, respiratory rate 16, and O2 of 93% on room air. His weight was 99.7 kg. General: He is in no acute distress. Heart: Regular rate and rhythm. S1, S2 without murmur. Lungs: Lung sounds are clear to auscultation bilaterally without crackles or wheezes. Extremities: Warm and dry. No edema. Mental Status: He is alert, he is orientated x3. He is able to follow all extraocular eye movements without any difficulty. He does state his vision is better if he closes one eye or the other and it does not seem to matter which one. The patient also had an occupational therapy eval and was recommended potentially to move into assisted living. 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 He lives at home with his and she takes care of his medications. Greater than 30 minutes spent on this discharge process. MKA: 11/06/2019 17:37:03 MODL: 11/06/2019 19:26:45 /[id number] MTDMario
== END 2019-11-06 17:08 | disposition swing bed (61) | DRG 149 ==
LOC: VM.ED 20:50 → VM.MS 11-02 00:13 → OBSVTOIN 11-03 10:03
PROVIDERS: ADMIT Internal Medicine; ATTEND Internal Medicine
DX: H81.4 Vertigo of central origin (principal); N17.9 Acute kidney failure, unspecified; I67.1 Cerebral aneurysm, nonruptured; H53.2 Diplopia; W19.XXXA Unspecified fall, initial encounter; Y92.230 Patient room in hospital as the place of occurrence of the external cause; I72.8 Aneurysm of other specified arteries; G47.33 Obstructive sleep apnea (adult) (pediatric); I25.10 Atherosclerotic heart disease of native coronary artery without angina pectoris; M17.0 Bilateral primary osteoarthritis of knee; N40.0 Benign prostatic hyperplasia without lower urinary tract symptoms; I12.9 Hypertensive chronic kidney disease with stage 1 through stage 4 chronic kidney disease, or unspecified chronic kidney disease; J45.909 Unspecified asthma, uncomplicated; N18.3 Chronic kidney disease, stage 3 (moderate); E29.1 Testicular hypofunction; M47.819 Spondylosis without myelopathy or radiculopathy, site unspecified; R26.81 Unsteadiness on feet; F32.9 Major depressive disorder, single episode, unspecified; Z94.7 Corneal transplant status; Z88.8 Allergy status to other drugs, medicaments and biological substances; Z99.81 Dependence on supplemental oxygen; Z79.82 Long term (current) use of aspirin; Z79.899 Other long term (current) drug therapy
CPT/HCPCS: 36415; 51798; 70450; 70496; 70498; 70553; 80048; 80053; 81003; 83605; 84484; 85025; 93005; 94640; 96361; 96374; 96375; 96376; 97035-GP; 97116-GP; 97129-GO; 97130-GO; 97140-GP; 97163-GP; 97530-GP; 99285-25; A9270-GY; A9579; G0378; J2405; J3360; J7030; J7120; Q9967

== ENCOUNTER 2019-11-06 12:26 | Inpatient (IN) | payer MEDICARE, OTHER ==
[2019-11-06] MEDS ORDERED: Meclizine 25 MG Tab PO PRN (17:03)
[2019-11-06] MEDS ORDERED: Diazepam 2 MG Tab PO PRN (17:03)
[2019-11-06] MEDS ORDERED: Ondansetron 4 MG/2 ML SDV IVPUSH PRN (17:03)
[2019-11-06] MEDS ORDERED: BETAMETHASONE DIPROPIONATE TOP PRN (17:03)
[2019-11-06] MEDS: Acetaminophen 500 MG Tab PO SCH (20:33)
[2019-11-06] MEDS: Arformoterol 15 MCG/2 ML Neb Soln NEB SCH (20:33)
[2019-11-06] MEDS: Budesonide 0.5 MG/2 ML Neb Susp NEB SCH (20:33)
[2019-11-06] MEDS: Simvastatin 10 MG Tab PO SCH (20:34)
[2019-11-06] MEDS: Metoprolol Tartrate 25 MG Tab PO SCH (20:34)
[2019-11-06] MEDS: traZODone 50 MG Tab PO SCH (20:34)
[2019-11-07] MEDS: Budesonide 0.5 MG/2 ML Neb Susp NEB SCH ×2 (07:08→20:25)
[2019-11-07] MEDS: Arformoterol 15 MCG/2 ML Neb Soln NEB SCH ×2 (07:10→20:25)
[2019-11-07] MEDS: Multivitamins with Iron/Calcium/Folic Acid/Minerals Tab PO SCH (07:55)
[2019-11-07] MEDS: Aspirin 81 MG Tab.Chew PO SCH (07:55)
[2019-11-07] MEDS: Acetaminophen 500 MG Tab PO SCH ×2 (07:55→20:26)
[2019-11-07] MEDS: Calcium Citrate/Vitamin D3 315 MG-250 Unit Tab PO SCH (07:55)
[2019-11-07] MEDS: Metoprolol Tartrate 25 MG Tab PO SCH ×2 (07:55→20:26)
[2019-11-07] MEDS: Omeprazole 20 MG Cap.CR PO SCH (07:55)
[2019-11-07] MEDS: FLUOROMETHOLONE OPH EYEBOTH SCH (07:56)
[2019-11-07] MEDS: Finasteride 5 MG Tab PO SCH (07:56)
[2019-11-07] MEDS: buPROPion 150 MG Tab.ER PO SCH (07:56)
[2019-11-07] MEDS: Venlafaxine 75 MG Cap.ER PO SCH (07:56)
[2019-11-07] MEDS: Tamsulosin 0.4 MG Cap.ER PO SCH (07:56)
[2019-11-07] MEDS ORDERED: Losartan 25 MG Tab PO SCH (08:00)
[2019-11-07] MEDS ORDERED: Clopidogrel 75 MG Tab PO SCH (08:00)
[2019-11-07] MEDS ORDERED: Meclizine 25 MG Tab PO PRN (09:00)
[2019-11-07] MEDS ORDERED: Losartan 25 MG Tab PO ONE (09:45)
--- NOTE | 2019-11-07 18:28 | PN ---
Progress Note for JERMAINE VIGIL Date: 11/07/2019 Room #: VM.215 SUBJECTIVE: This is an 84-year-old on swing bed recovering after an acute episode of vertigo. It was felt to be more of a central vertigo. Then, after he was in the hospital a couple of days, he developed some double vision, which resolves when he closes one eye or the other. He describes it as seeing the numbers on the calender above one another. He states that the vertigo is gone. He is still feeling a little bit weak and working with therapies. His MRI did not show a stroke. He has not had any fever or chills. Blood pressures continue to run higher in the 160s. He has been on lower doses of losartan when there was concern he had a stroke. We will plan to increase that today. Unfortunately, his did not feel well enough to bring him his eye drops yesterday. They have been ordered for his history of corneal transplant bilaterally and it was not discovered until over the weekend that he was not getting them by the providers since the had not brought them in yet. He otherwise has no troubles now emptying his bladder. Bladder scans have been good. OBJECTIVE: Vital Signs: His temperature 97.5, pulse 61, blood pressure 163/90, respiratory rate 19, and O2 of 97% on room air. General: He is in no acute distress. Heart: Regular rate and rhythm. Lungs: Sounds are clear to auscultation bilaterally without crackles or wheezes. Extremities: Warm and dry. No edema. Mental Status: Alert and orientated x3. ASSESSMENT AND PLAN: 1. Central vertigo with double vision. We will check a thyroid level and a myasthenia panel. 2. History of corneal transplant. I even attempted to call his myself. There is a caregiver. We have tried multiple times to get those eye drops brought in. At this point, we are just still waiting for them since they are steroid eye drops that we do not have on hand. If they do not come tomorrow, I am going to have to reach out to an eye doctor. 3. Obstructive sleep apnea. He is on CPAP. 4. Essential hypertension, not at goal. We will increase his losartan back up to 100. 5. History of coronary artery disease. He has not had any angina. 6. Reactive airway disease that is not asthma. He is on neb treatments while hospitalized. 7. Obesity. 8. BPH. He is on Flomax. 9. Known left middle cerebral artery aneurysm, stable since 2016. 10.Chronic kidney disease. Creatinine stable at 1.5. 11.Hypogonadism. Remotely on testosterone injections. 12.History of depression. PLAN: At this point, the patient will continue under swing bed cares and working with therapy. We continue to try to get his eye drops. We have ordered lab work for tomorrow. MKA: 11/07/2019 17:16:11 MODL: 11/07/2019 18:06:43 /[id number]
[2019-11-07] MEDS: traZODone 50 MG Tab PO SCH (20:26)
[2019-11-07] MEDS: Simvastatin 10 MG Tab PO SCH (20:26)
[2019-11-08] MEDS: Arformoterol 15 MCG/2 ML Neb Soln NEB SCH ×2 (06:12→20:03)
[2019-11-08] MEDS: Budesonide 0.5 MG/2 ML Neb Susp NEB SCH ×2 (06:12→20:03)
[2019-11-08 07:07] LABS: ANION GAP 12.5 mmol/L (10-20)
[2019-11-08] MEDS: Aspirin 81 MG Tab.Chew PO SCH (08:17)
[2019-11-08] MEDS: Venlafaxine 75 MG Cap.ER PO SCH (08:17)
[2019-11-08] MEDS: Tamsulosin 0.4 MG Cap.ER PO SCH (08:17)
[2019-11-08] MEDS: Finasteride 5 MG Tab PO SCH (08:17)
[2019-11-08] MEDS: Acetaminophen 500 MG Tab PO SCH ×2 (08:17→20:05)
[2019-11-08] MEDS: Losartan 50 MG Tab PO SCH (08:18)
[2019-11-08] MEDS: Multivitamins with Iron/Calcium/Folic Acid/Minerals Tab PO SCH (08:18)
[2019-11-08] MEDS: Omeprazole 20 MG Cap.CR PO SCH (08:18)
[2019-11-08] MEDS: Calcium Citrate/Vitamin D3 315 MG-250 Unit Tab PO SCH (08:18)
[2019-11-08] MEDS: buPROPion 150 MG Tab.ER PO SCH (08:18)
[2019-11-08] MEDS: Metoprolol Tartrate 25 MG Tab PO SCH ×2 (08:18→20:04)
[2019-11-08] MEDS: FLUOROMETHOLONE OPH EYEBOTH SCH (08:19)
[2019-11-08] MEDS ORDERED: prednisoLONE Acetate 1% Ophth Susp 5 ML Bottle EYEBOTH SCH (09:15)
[2019-11-08] MEDS ORDERED: FLUOROMETHOLONE 0.1% EYEBOTH SCH (10:59)
[2019-11-08] MEDS: FLUOROMETHOLONE 0.1% EYEBOTH SCH ×3 (12:14→20:06)
[2019-11-08] MEDS: Simvastatin 10 MG Tab PO SCH (20:05)
[2019-11-08] MEDS: traZODone 50 MG Tab PO SCH (21:23)
[2019-11-09] MEDS: Arformoterol 15 MCG/2 ML Neb Soln NEB SCH ×2 (06:10→19:20)
[2019-11-09] MEDS: Budesonide 0.5 MG/2 ML Neb Susp NEB SCH ×2 (06:11→19:20)
[2019-11-09] MEDS: Acetaminophen 500 MG Tab PO SCH ×2 (07:58→19:19)
[2019-11-09] MEDS: Omeprazole 20 MG Cap.CR PO SCH (07:58)
[2019-11-09] MEDS: Tamsulosin 0.4 MG Cap.ER PO SCH (07:58)
[2019-11-09] MEDS: Calcium Citrate/Vitamin D3 315 MG-250 Unit Tab PO SCH (07:58)
[2019-11-09] MEDS: buPROPion 150 MG Tab.ER PO SCH (07:58)
[2019-11-09] MEDS: Multivitamins with Iron/Calcium/Folic Acid/Minerals Tab PO SCH (07:58)
[2019-11-09] MEDS: Aspirin 81 MG Tab.Chew PO SCH (07:58)
[2019-11-09] MEDS: Venlafaxine 75 MG Cap.ER PO SCH (07:58)
[2019-11-09] MEDS: Finasteride 5 MG Tab PO SCH (07:59)
[2019-11-09] MEDS: Metoprolol Tartrate 25 MG Tab PO SCH ×2 (07:59→19:18)
[2019-11-09] MEDS: Losartan 50 MG Tab PO SCH (07:59)
[2019-11-09] MEDS ORDERED: Docusate Sodium 100 MG Cap PO PRN (08:15)
[2019-11-09] MEDS: Simvastatin 10 MG Tab PO SCH (19:18)
[2019-11-09] MEDS: traZODone 50 MG Tab PO SCH (19:19)
[2019-11-09] MEDS: FLUOROMETHOLONE 0.1% EYEBOTH SCH (19:22)
[2019-11-10 06:27] VITALS: BP 130/70; PULSE 67
[2019-11-10] MEDS: Arformoterol 15 MCG/2 ML Neb Soln NEB SCH (07:07)
[2019-11-10] MEDS: Budesonide 0.5 MG/2 ML Neb Susp NEB SCH (07:07)
[2019-11-10] MEDS: Acetaminophen 500 MG Tab PO SCH (08:54)
[2019-11-10] MEDS: Tamsulosin 0.4 MG Cap.ER PO SCH (08:54)
[2019-11-10] MEDS: Losartan 50 MG Tab PO SCH (08:55)
[2019-11-10] MEDS: Finasteride 5 MG Tab PO SCH (08:55)
[2019-11-10] MEDS: Metoprolol Tartrate 25 MG Tab PO SCH (08:55)
[2019-11-10] MEDS: Venlafaxine 75 MG Cap.ER PO SCH (08:56)
[2019-11-10] MEDS: Aspirin 81 MG Tab.Chew PO SCH (08:56)
[2019-11-10] MEDS: buPROPion 150 MG Tab.ER PO SCH (08:56)
[2019-11-10] MEDS: Calcium Citrate/Vitamin D3 315 MG-250 Unit Tab PO SCH (08:56)
[2019-11-10] MEDS: Omeprazole 20 MG Cap.CR PO SCH (08:56)
[2019-11-10] MEDS: Multivitamins with Iron/Calcium/Folic Acid/Minerals Tab PO SCH (08:56)
--- NOTE | 2019-11-10 20:59 | DISCH ---
PRIMARY DISCHARGE DIAGNOSES: 1. Concern for an acute posterior circulation stroke with vertigo and double vision and nystagmus, improved or resolved by discharge. 2. Known history of corneal transplants, off his drops for a few days, but resumed. Vision did not appear to be affected by that. 3. Obstructive sleep apnea, on CPAP. 4. History of coronary artery disease. 5. Reactive airway disease, not asthma. He is chronically short of breath. 6. Osteoarthritis of his knees and back, which does also affect his mobility. 7. Obesity. 8. Known left middle cerebral artery aneurysm 1.7 x 0.8 x 0.7 cm, stable since at least 2015. 9. Benign prostatic hyperplasia, recently increased on Flomax. He is tolerating that with postvoid residuals less than 100. 10.Essential hypertension, on losartan. Held initially due to the stroke, but restarted when his blood pressure began being elevated on swing bed. 11.Chronic kidney disease. Creatinine stable at 1.5 during his stay. 12.Hypogonadism. Has not been on testosterone injections for several months. 13.History of depression. REASON FOR ADMISSION: On the date of admission, this 84-year-old male was out pulling some weeds, working over his left shoulder quite a bit when he became suddenly so dizzy he could not even get up. He just had to lay down. His found him there about an hour or so later, ambulance was called, and he came to the emergency room. While there, it was thought that he maybe had BPPV. However, when he was evaluated by Physical Therapy, they felt it was more of a central vertigo. He was having at least 120 beats of nystagmus, which continued until just a few days prior to discharge. It was right upbeating per the PT staff. I did see the nystagmus also early on as well. After the patient was on observation and clinically he was felt to have had a stroke, I admitted him to acute care on 11/03/2019 and then he underwent his MRI on 11/06/2019, which failed to reveal any acute stroke. He also had a neck CTA, head CTA, and head CT on the . The patient continued to make improvements every day, especially yesterday and today he was more consistent. PT would have liked to keep working with him until next week, but he was walking at least 50 feet with his walker at standby assist and he wanted to go home where his could help care for him. DISCHARGE PLANS AND INSTRUCTIONS: He is going home to return next week for therapies. His only medication change is that he will be on aspirin 81 mg daily and Plavix 75 mg daily for another 2 weeks and then go back to aspirin 325 mg daily. He will also be upgraded from his Pravachol to Crestor 20 mg daily. I will send this change through the clinic for him. He is going to see the Neurology Ophtho specialist on 12/06/2019. He will have an echo test on 11/27/2019 and he will see me for a followup appointment on 11/17/2019. The patient is aware that he should not be driving. His will be doing the driving. He had no visual field deficits that were found at the time of discharge. PHYSICAL EXAMINATION: Discharging Vitals: Include a temperature 97.2, pulse 67, blood pressure 130/70, respiratory rate 20, and O2 of 94% on room air. General: He is in no acute distress. Heart: A regular rate and rhythm. S1, S2 without murmur. Lungs: Lung sounds are clear to auscultation bilaterally without crackles or wheezes. Extremities: Warm and dry. No edema. Mental Status: He is alert and orientated x3. MKA: 11/10/2019 17:06:43 MODL: 11/10/2019 20:53:35 /[id number]
== END 2019-11-10 15:30 | disposition home or self-care (01) | DRG 149 ==
LOC: VM.MS 17:08
PROVIDERS: ADMIT Internal Medicine; ATTEND Internal Medicine
DX: H81.4 Vertigo of central origin (principal); G47.33 Obstructive sleep apnea (adult) (pediatric); E66.9 Obesity, unspecified; N40.0 Benign prostatic hyperplasia without lower urinary tract symptoms; F32.9 Major depressive disorder, single episode, unspecified; I12.9 Hypertensive chronic kidney disease with stage 1 through stage 4 chronic kidney disease, or unspecified chronic kidney disease; N18.9 Chronic kidney disease, unspecified; M17.0 Bilateral primary osteoarthritis of knee; H53.2 Diplopia; H55.00 Unspecified nystagmus; Z79.82 Long term (current) use of aspirin; Z94.7 Corneal transplant status; Z79.01 Long term (current) use of anticoagulants; Z68.30 Body mass index [BMI] 30.0-30.9, adult
CPT/HCPCS: 36415; 80048; 84443; 85025; 94640; 97110-GP; 97112-GP; 97116-GP; A9270-GY

== ENCOUNTER 2021-05-26 07:04 | Emergency (ER) | payer MEDICARE, OTHER ==
[2021-05-26 07:14] VITALS: BP 157/99; PULSE 82
--- NOTE | 2021-05-26 07:25 | EDM.PDOC ---
ED HPI GENERAL MEDICAL PROBLEM - General Chief Complaint: General Stated Complaint: PAIN IN LEGS AND BODY Time Seen by Provider: 05/26/21 07:19 Source of Information: Reports: Patient, Family History Limitations: Reports: No Limitations - History of Present Illness INITIAL COMMENTS - FREE TEXT/NARRATIVE: Patient and complain of a painful groin and scrotal rash that the states has been ongoing since before COVID-19 began. Was given antifungal cream and has just run out. Not really helping. Pain increased this morning, so much so that EMS was called and transported to the ED. He does complain of some chronic type headaches for the last 1-2 weeks and shortness of breath that he says is not new. Unable to tell me when his last follow up appointment with his primary was, though in looking at the paperwork that was brought with them it appears like it may have been February of this year. He states he has follow up with Dr. Lynch every 3 months or so. No other complaints today. Pain has improved without any treatment at this time. has applied kenalog to the area as he is out of the antifungal. Onset: Other ( reports onset before "COVID") Duration: Getting Worse Location: Reports: Other (groin bilaterally) Severity: Moderate Associated Symptoms: Reports: Headaches - Related Data Allergies Allergy/AdvReac Type Severity Reaction Status Date / Time terazosin HCl [From Hytrin] Allergy Cannot Verified 11/01/19 21:18 Remember captopril [From Capoten] AdvReac Cough Verified 11/01/19 21:18 Home Meds: Home Meds Betamethasone Dipropionate [Diprosone 0.05% Lotion] 1 applic TOP ASDIRECTED PRN 05/31/13 [History] Finasteride 5 mg PO DAILY 05/31/13 [History] Fluorometholone [Fluorometholone 0.1% Ophth Susp] 1 drop EYEBOTH BEDTIME 1 08/01/12 [History] Fluticasone/Salmeterol [Advair 250-50] 1 puff INH BID 05/31/13 [History] Metoprolol Tartrate [Lopressor] 25 mg PO BID 05/31/13 [History] Multivitamin with Minerals [Multiple Vitamin] 1 tab PO DAILY 05/31/13 [History] Omeprazole 20 mg PO DAILY 05/31/13 [History] Pravastatin [Pravachol] 20 mg PO DAILY 05/31/13 [History] Tacrolimus [Protopic 0.1% Oint] 1 applic TOP BID PRN 05/31/13 [History] Tamsulosin HCl 0.8 mg PO DAILY 05/31/13 [History] buPROPion [buPROPion XL] 300 mg PO DAILY 05/31/13 [History] traZODone 300 mg PO BEDTIME 05/31/13 [History] Acetaminophen 650 mg PO Q6HR PRN 08/27/16 [History] Nitroglycerin [Nitrostat] 0.4 mg SL ASDIRECTED PRN 08/27/16 [History] Venlafaxine HCl [Venlafaxine ER] 150 mg PO DAILY 08/27/16 [History] Albuterol [Ventolin HFA] 1 puff INH Q4H PRN 08/12/17 [History] Calcium Carb, Citrate/Vit D3 [Calcium + D3 ER Tablet] 1 tab PO DAILY 11/01/19 [History] Fluocinonide [Lidex 0.05% Top Soln] 1 applic TOP DAILY PRN 11/01/19 [History] Losartan [Cozaar] 100 mg PO BEDTIME 11/01/19 [History] Acetaminophen [Tylenol Extra Strength] 1,000 mg PO BID tablet 11/10/19 [Rx] Aspirin 81 mg PO DAILY tab.chew 11/10/19 [Rx] Clopidogrel Bisulfate [Plavix] 75 mg PO DAILY #14 tablet 11/10/19 [Rx] Past Medical History HEENT History: Reports: Other (See Below) Other HEENT History: [place] Cardiovascular History: Reports: Aneurysm, Bypass, CAD, High Cholesterol, Hypertension, [place] Other Cardiovascular History: Thoracic aorta aneurysm. Respiratory History: Reports: Sleep Apnea, Other (See Below) Other Respiratory History: Reactive Airway Disease Gastrointestinal History: Reports: GERD Genitourinary History: Reports: Chronic Renal Insuffiency, Prostate Disorder, Other (See Below) Musculoskeletal History: Reports: Osteoarthritis, Other (See Below) Other Musculoskeletal History: Osteopenia Neurological History: Reports: Cerebral Aneurysms, Other (See Below) Other Neuro History: Middle cerebral atrtery aneurysm, Chronic fatigue syndrome Psychiatric History: Reports: Anxiety, Depression Endocrine/Metabolic History: Reports: Diabetes, Type II - Past Surgical History HEENT Surgical History: Reports: Other (See Below) Other HEENT Surgeries/Procedures: corneal transplant Cardiovascular Surgical History: Reports: Coronary Artery Bypass Musculoskeletal Surgical History: Reports: Joint Replacement Social & Family History - Tobacco Use Tobacco Use Status *Q: Unknown Ever Used Tobacco ED ROS GENERAL - Review of Systems Review Of Systems: See Below Constitutional: Reports: No Symptoms HEENT: Reports: No Symptoms Respiratory: Reports: Shortness of Breath (not new) Cardiovascular: Reports: No Symptoms Endocrine: Reports: No Symptoms GI/Abdominal: Reports: No Symptoms : Reports: No Symptoms Musculoskeletal: Reports: No Symptoms Skin: Reports: Rash (bilateral groin) Neurological: Reports: Headache (to posterior and for 1-2 weeks) Psychiatric: Reports: No Symptoms Hematologic/Lymphatic: Reports: No Symptoms Immunologic: Reports: No Symptoms ED EXAM, GENERAL - Physical Exam Exam: See Below Exam Limited By: No Limitations General Appearance: Alert, WD/WN, No Apparent Distress Ears: Normal External Exam, Normal Canal, Hearing Grossly Normal, Normal TMs Ear Exam: Bilateral Ear: Auricle Normal, Canal Normal, TM normal Nose: Normal Inspection, Normal Mucosa, No Blood Throat/Mouth: Normal Inspection, Normal Lips, Normal Teeth, Normal Gums, Normal Oropharynx, Normal Voice, No Airway Compromise Head: Atraumatic, Normocephalic Neck: Normal Inspection, Supple, Non-Tender, Full Range of Motion Respiratory/Chest: No Respiratory Distress, Lungs Clear, Normal Breath Sounds, No Accessory Muscle Use, Chest Non-Tender Cardiovascular: Normal Peripheral Pulses, Regular Rate, Rhythm, No Edema, No G allop, No JVD, No Murmur, No Rub GI/Abdominal: Normal Bowel Sounds, Soft, Non-Tender, No Organomegaly, No Distention, No Abnormal Bruit, No Mass (Male) Exam: Rash (macular rash with erythema, no pustules, blisters, ecchymosis. Not pruritic.). No: Scrotal Swelling Rectal (Males) Exam: Normal Exam, Normal Rectal Tone, Prostate Normal Back Exam: Normal Inspection, Full Range of Motion, NT Extremities: Normal Inspection, Normal Range of Motion, Non-Tender, Normal Capillary Refill, No Pedal Edema Neurological: Alert, Oriented, CN II-XII Intact, Normal Cognition, Normal Gait, Normal Reflexes, No Motor/Sensory Deficits Psychiatric: Normal Affect, Normal Mood Skin Exam: Warm, Dry, Intact, Normal Color, No Rash Lymphatic: No Adenopathy Course - Vital Signs Last Recorded V/S: Last Vital Signs Temp 36.3 C 05/26/21 07:04 Pulse 82 05/26/21 07:04 Resp 28 H 05/26/21 07:04 BP 157/99 H 05/26/21 07:04 Pulse Ox 98 05/26/21 07:04 Departure - Departure Time of Disposition: 08:34 Disposition: Home, Self-Care 01 Condition: Good Clinical Impression: Yeast dermatitis - Discharge Information *PRESCRIPTION DRUG MONITORING PROGRAM REVIEWED*: Not Applicable *COPY OF PRESCRIPTION DRUG MONITORING REPORT IN PATIENT AMOS: Not Applicable Instructions: Genital Yeast Infection, Male Additional Instructions: Follow up with Dr. Lynch this week Apply nystatin cream 3-4 times a day Keep area dry and clean, dry well after any bathing or showers Sepsis Event Note (ED) - Focused Exam Vital Signs: Vital Signs Temp Pulse Resp BP Pulse Ox 05/26/21 07:04 36.3 C 82 28 H 157/99 H 98 - Problem List & Annotations (1) Yeast dermatitis SNOMED Code(s): 92733624 Code(s): B37.2 - CANDIDIASIS OF SKIN AND NAIL Status: Acute Current Visit: Yes
[2021-05-26] MEDS ORDERED: Nystatin Crm 30 GM Tube TOP ONE (07:52)
== END 2021-05-26 08:28 | disposition home or self-care (01) ==
LOC: VM.ED 07:04
DX: L30.9 Dermatitis, unspecified (principal); B37.2 Candidiasis of skin and nail; I25.10 Atherosclerotic heart disease of native coronary artery without angina pectoris; E78.00 Pure hypercholesterolemia, unspecified; I12.9 Hypertensive chronic kidney disease with stage 1 through stage 4 chronic kidney disease, or unspecified chronic kidney disease; I25.2 Old myocardial infarction; M19.90 Unspecified osteoarthritis, unspecified site; E11.22 Type 2 diabetes mellitus with diabetic chronic kidney disease; N18.9 Chronic kidney disease, unspecified; K21.9 Gastro-esophageal reflux disease without esophagitis; Z95.1 Presence of aortocoronary bypass graft; Z79.02 Long term (current) use of antithrombotics/antiplatelets; Z79.899 Other long term (current) drug therapy; Z88.8 Allergy status to other drugs, medicaments and biological substances
CPT/HCPCS: 99283; 99284

== ENCOUNTER 2022-12-15 08:22 | Emergency (ER) | payer MEDICARE, OTHER ==
[2022-12-15] MEDS: Acetaminophen 325 MG Tab PO ONE (09:26)
[2022-12-15] MEDS: Orphenadrine 60 MG/2 ML Inj IM ONE (09:27)
[2022-12-15 16:18] VITALS: BP 176/87; PULSE 84
== END 2022-12-15 10:45 | disposition home or self-care (01) ==
LOC: VM.ED 08:22
DX: G44.209 Tension-type headache, unspecified, not intractable (principal); I25.10 Atherosclerotic heart disease of native coronary artery without angina pectoris; E11.22 Type 2 diabetes mellitus with diabetic chronic kidney disease; I12.9 Hypertensive chronic kidney disease with stage 1 through stage 4 chronic kidney disease, or unspecified chronic kidney disease; N18.9 Chronic kidney disease, unspecified; I25.2 Old myocardial infarction; E78.00 Pure hypercholesterolemia, unspecified; K21.9 Gastro-esophageal reflux disease without esophagitis; Z88.8 Allergy status to other drugs, medicaments and biological substances; Z79.82 Long term (current) use of aspirin; Z79.899 Other long term (current) drug therapy
CPT/HCPCS: 96372; 99284; A9270-GY; J2360

== ENCOUNTER 2024-07-31 11:00 | Emergency (ER) | payer MEDICARE, OTHER ==
[2024-07-31 11:22] VITALS: BP 159/91; PULSE 77
== END 2024-07-31 11:45 | disposition home or self-care (01) ==
LOC: VM.ED 11:00
DX: R41.0 Disorientation, unspecified (principal); I12.9 Hypertensive chronic kidney disease with stage 1 through stage 4 chronic kidney disease, or unspecified chronic kidney disease; N18.9 Chronic kidney disease, unspecified; I25.10 Atherosclerotic heart disease of native coronary artery without angina pectoris; I25.2 Old myocardial infarction; E78.00 Pure hypercholesterolemia, unspecified; E11.22 Type 2 diabetes mellitus with diabetic chronic kidney disease; K21.9 Gastro-esophageal reflux disease without esophagitis; Z95.1 Presence of aortocoronary bypass graft; Z79.82 Long term (current) use of aspirin; Z79.899 Other long term (current) drug therapy; Z88.8 Allergy status to other drugs, medicaments and biological substances
CPT/HCPCS: 99284